=== PATIENT | male | born 1950 | race Caucasian/White ===

== ENCOUNTER → 2020-01-04 14:33 | Outpatient (BNVA) | payer MEDICARE, SELFPAY | PROVIDERS: Visit Provider Internal Medicine Rheumatology | DX: M32.14 Glomerular disease in systemic lupus erythematosus (principal); M32.9 Systemic lupus erythematosus, unspecified; Z79.899 Other long term (current) drug therapy; M35.01 Sjogren syndrome with keratoconjunctivitis; E55.9 Vitamin D deficiency, unspecified; N18.9 Chronic kidney disease, unspecified; F17.220 Nicotine dependence, chewing tobacco, uncomplicated | CPT/HCPCS: 99214 ==

== ENCOUNTER → 2020-06-14 13:16 | Outpatient (BNVA) | payer MEDICARE, SELFPAY | PROVIDERS: Visit Provider Internal Medicine | DX: M32.9 Systemic lupus erythematosus, unspecified (principal); M10.9 Gout, unspecified; Z79.899 Other long term (current) drug therapy; N18.9 Chronic kidney disease, unspecified; F17.220 Nicotine dependence, chewing tobacco, uncomplicated | CPT/HCPCS: 99213 ==

== ENCOUNTER → 2020-10-05 10:07 | Outpatient (BNVA) | payer MEDICARE, SELFPAY | PROVIDERS: Visit Provider Internal Medicine | DX: M32.9 Systemic lupus erythematosus, unspecified (principal); D86.9 Sarcoidosis, unspecified; Z79.899 Other long term (current) drug therapy; Z23 Encounter for immunization; M10.9 Gout, unspecified; N18.9 Chronic kidney disease, unspecified; E55.9 Vitamin D deficiency, unspecified | CPT/HCPCS: 90471; 90686; 99214 ==

== ENCOUNTER → 2021-01-18 09:54 | Outpatient (BNVA) | payer OTHER, SELFPAY | PROVIDERS: PCP Family Medicine; Visit Provider Internal Medicine | DX: M32.9 Systemic lupus erythematosus, unspecified (principal); D89.9 Disorder involving the immune mechanism, unspecified; M10.9 Gout, unspecified; N18.9 Chronic kidney disease, unspecified; Z87.891 Personal history of nicotine dependence | CPT/HCPCS: 99214 ==

== ENCOUNTER 2021-01-18 11:24 | Outpatient (CLI) | payer MEDICARE, SELFPAY ==
[2021-01-18 11:55] LABS: Add Urine Microscopic? NO
[2021-01-18 12:38] LABS: Basophils % 0.2 %; Eosinophils # 0.2 10^3/uL (0.0-0.8); Eosinophils % 2.9 %; Hematocrit 45.1 % (42.0-52.0); Hemoglobin 14.7 g/dL (11.7-16.6); Lymphocytes # 1.5 10^3/uL (0.8-4.8); Lymphocytes % 28.7 %; Mean Corpuscular HGB Conc 32.6 g/dL (30.0-36.0); Mean Corpuscular Hemoglobin 31.6 pg (28.0-34.0); Mean Platelet Volume 9.6 fL (7.4-10.4); Monocytes # 0.4 10^3/uL (0.2-0.9); Monocytes % 7.9 %; Neutrophils % 60.1 %; Nucleated Red Blood Cells % 0 %; Platelet Count 161 10^3/cmm (130-400); Red Blood Count 4.65 10^6/uL (4.1-5.3); Red Cell Distribution Width 11.9 % (12.1-15.1); White Blood Count 5.2 10^3/uL (4.0-10.0)
[2021-01-18 12:52] LABS: Bilirubin Urine Neg (Negative); Blood Urine Neg (Negative); Glucose Urine UA Norm (Normal); Ketones Urine Negative (Negative); Leukocyte Esterase Urine Negative (Negative); Nitrate Urine Negative (Negative); Protein Urine Neg (Negative); Specific Gravity, Urine 1.005 (1.005-1.030); Urine Appearance Clear (CLEAR); Urine Color Straw (Yellow); Urobilinogen Urine Norm (Negative); pH Urine 7 (5-7)
[2021-01-18 12:53] LABS: Alanine Aminotransferase 13 U/L (0-41); Albumin Level 4.6 g/dL (3.5-5.2); Alkaline Phosphatase 73 IU/L (40-130); Anion Gap 11.8 (5-19); Aspartate Amino Transferase 17 U/L (0-40); Blood Urea Nitrogen 12 mg/dL (8-23); C Reactive Protein 2.6 mg/L (0.0-4.9); Calcium 9.7 mg/dL (8.5-10.5); Carbon Dioxide 30 mmol/L (22-29); Chloride 98 mmol/L (98-107); Globulin 3.1 g/dL (1.3-4.6); Glucose 87 mg/dL (65-115); Osmolality Calculated 279 mOsm/kg (285-295); Potassium 4.8 mmol/L (3.5-5.1); Sodium 135 mmol/L (136-145); Total Bilirubin 0.5 mg/dL (0.15-1.2); Total Protein 7.7 g/dL (6.6-8.7)
[2021-01-18 13:12] LABS: Creatinine Urine, Random 56 mg/dL (39-259)
[2021-01-18 13:41] LABS: Complement C3 121 mg/dL (90-180)
[2021-01-18 14:01] LABS: Erythrocyte Sedimentation Rate 11 mm/hr (0-10)
== END 2021-01-18 11:25 | disposition home or self-care (01) ==
PROVIDERS: PCP Family Medicine; Visit Provider Internal Medicine
DX: M32.9 Systemic lupus erythematosus, unspecified (principal)
CPT/HCPCS: 36415; 80053; 81003; 82575; 84156; 85025; 85651; 86140; 86160

== ENCOUNTER → 2021-04-17 11:07 | Outpatient (BNVA) | payer MEDICARE, SELFPAY | PROVIDERS: PCP Family Medicine; Visit Provider Internal Medicine | DX: M32.14 Glomerular disease in systemic lupus erythematosus (principal); Z51.81 Encounter for therapeutic drug level monitoring; Z79.899 Other long term (current) drug therapy | CPT/HCPCS: 36415; 80053; 85025; 85651; 86140 ==

== ENCOUNTER → 2021-04-23 14:01 | Outpatient (BNVA) | payer MEDICARE, SELFPAY | PROVIDERS: PCP Family Medicine; Visit Provider Internal Medicine | DX: M32.9 Systemic lupus erythematosus, unspecified (principal); M32.14 Glomerular disease in systemic lupus erythematosus; D89.9 Disorder involving the immune mechanism, unspecified; Z87.891 Personal history of nicotine dependence | CPT/HCPCS: 99213 ==

== ENCOUNTER → 2021-08-21 09:30 | Outpatient (BNVA) | payer MEDICARE, SELFPAY | PROVIDERS: PCP Family Medicine; Visit Provider Internal Medicine | DX: M32.9 Systemic lupus erythematosus, unspecified (principal); Z79.899 Other long term (current) drug therapy; D89.9 Disorder involving the immune mechanism, unspecified; M32.14 Glomerular disease in systemic lupus erythematosus; Z51.81 Encounter for therapeutic drug level monitoring | CPT/HCPCS: 80053; 81000; 85025; 85651; 86140 ==

== ENCOUNTER → 2021-08-26 14:30 | Outpatient (BNVA) | payer OTHER, SELFPAY | PROVIDERS: PCP Family Medicine; Visit Provider Internal Medicine | DX: M32.9 Systemic lupus erythematosus, unspecified (principal); Z79.899 Other long term (current) drug therapy; N18.9 Chronic kidney disease, unspecified; M25.519 Pain in unspecified shoulder; F17.220 Nicotine dependence, chewing tobacco, uncomplicated | CPT/HCPCS: 99213; 99214 ==

== ENCOUNTER → 2021-12-30 09:14 | Outpatient (BNVA) | payer OTHER, SELFPAY | PROVIDERS: PCP Family Medicine; Visit Provider Internal Medicine | DX: E55.9 Vitamin D deficiency, unspecified (principal); M10.9 Gout, unspecified; M32.14 Glomerular disease in systemic lupus erythematosus; M32.9 Systemic lupus erythematosus, unspecified; N18.9 Chronic kidney disease, unspecified; Z51.81 Encounter for therapeutic drug level monitoring; Z79.899 Other long term (current) drug therapy | CPT/HCPCS: 80053; 81000; 84550; 85025; 85651; 86140; 86160 ==

== ENCOUNTER → 2022-04-03 09:04 | Outpatient (BNVA) | payer OTHER, SELFPAY | PROVIDERS: PCP Registered Nurse; Visit Provider Internal Medicine | DX: M32.9 Systemic lupus erythematosus, unspecified (principal); Z79.899 Other long term (current) drug therapy; D89.9 Disorder involving the immune mechanism, unspecified; Z51.81 Encounter for therapeutic drug level monitoring | CPT/HCPCS: 80076; 81003; 82565; 82570; 84156; 85025; 86140 ==

== ENCOUNTER → 2022-07-25 08:56 | Outpatient (BNVA) | payer OTHER, SELFPAY | PROVIDERS: PCP Registered Nurse; Visit Provider Internal Medicine | DX: M32.9 Systemic lupus erythematosus, unspecified (principal); Z79.899 Other long term (current) drug therapy | CPT/HCPCS: 80076; 81003; 82565; 84156; 85025; 86140 ==

== ENCOUNTER → 2022-10-10 08:51 | Outpatient (BNVA) | payer OTHER, SELFPAY | PROVIDERS: PCP Registered Nurse; Visit Provider Internal Medicine | DX: M32.9 Systemic lupus erythematosus, unspecified (principal); Z79.899 Other long term (current) drug therapy; D89.9 Disorder involving the immune mechanism, unspecified; M32.14 Glomerular disease in systemic lupus erythematosus; Z51.81 Encounter for therapeutic drug level monitoring | CPT/HCPCS: 80076; 81003; 82565; 84156; 85025; 86140 ==

== ENCOUNTER → 2023-02-06 09:55 | Outpatient (BNVA) | payer OTHER, SELFPAY | PROVIDERS: PCP Registered Nurse; Visit Provider Internal Medicine | DX: M10.9 Gout, unspecified (principal) | CPT/HCPCS: 80053; 85025; 85651; 86140 ==

== ENCOUNTER → 2023-05-01 09:00 | Outpatient (BNVA) | payer OTHER, SELFPAY | PROVIDERS: PCP Registered Nurse; Visit Provider Internal Medicine | DX: M32.9 Systemic lupus erythematosus, unspecified (principal); Z79.899 Other long term (current) drug therapy | CPT/HCPCS: 80076; 81003; 82565; 84156; 85025; 86140 ==

== ENCOUNTER → 2023-05-08 09:18 | Outpatient (BNVA) | payer MEDICARE, SELFPAY | PROVIDERS: Visit Provider Internal Medicine | DX: M10.9 Gout, unspecified (principal); M32.9 Systemic lupus erythematosus, unspecified; D89.9 Disorder involving the immune mechanism, unspecified | CPT/HCPCS: 99214 ==

== ENCOUNTER → 2023-07-30 15:39 | Outpatient (BNVA) | payer MEDICARE, SELFPAY | PROVIDERS: Visit Provider Internal Medicine | DX: M10.9 Gout, unspecified (principal) | CPT/HCPCS: 80076; 81003; 82565; 84156; 85025; 86140 ==

== ENCOUNTER → 2023-10-23 09:27 | Outpatient (BNVA) | payer MEDICARE, SELFPAY | PROVIDERS: Visit Provider Internal Medicine | DX: M10.9 Gout, unspecified (principal) | CPT/HCPCS: 80053; 81000; 84550; 85025; 85651; 86140 ==

== ENCOUNTER → 2023-10-30 08:34 | Outpatient (BNVA) | payer MEDICARE, SELFPAY | PROVIDERS: PCP Family Medicine; Visit Provider Internal Medicine | DX: M25.519 Pain in unspecified shoulder (principal); E03.9 Hypothyroidism, unspecified; M32.9 Systemic lupus erythematosus, unspecified; D89.9 Disorder involving the immune mechanism, unspecified; M10.9 Gout, unspecified | CPT/HCPCS: 99214 ==